=== PATIENT | male | born 1990 | race African-American/Black ===

== ENCOUNTER 2024-05-12 15:52 | Emergency (ER) | payer MEDICAID ==
[~2024-05-12] VITALS: Ht 177.8 cm; Wt 75.0 kg
[2024-05-12 16:05] VITALS: BP 113/72; PULSE 68; RESP 18; TEMP 98; O2SAT 100
[2024-05-12] MEDS ORDERED: MECLIZINE 25MG TABLET PO ONE (16:15)
[2024-05-12] MEDS ORDERED: MECLIZINE 25MG TABLET PO NR (16:15)
[2024-05-12 17:03] LABS: BASOPHILS % 0.9 % (0.0-2.0); EOSINOPHILS % 4.1 % (0.0-5.0); HEMATOCRIT. 42.2 % (42.0-52.0); HEMOGLOBIN. 13.5 g/dL (14.0-18.0); LYMPHOCYTES % 36.9 % (20.0-50.0); MEAN CORPUSCULAR VOLUME 87.5 fL (80.0-94.0); MEAN PLATELET VOLUME 7.4 fl (7.4-10.4); MONOCYTES % 6.1 % (2.0-8.0); PLATELET 238 x1000/uL (130-400); RED BLOOD CELL COUNT 4.83 mill/uL (4.7-6.1); RED CELL DISTRIBUTION WIDTH 13.7 % (11.6-14.6); WHITE BLOOD COUNT 5.1 x1000/uL (4.5-11.0)
[2024-05-12 17:07] LABS: CHLORIDE 108 mEq/L (98-107); SODIUM 140 mEq/L (136-145)
[2024-05-12 17:08] LABS: CARBON DIOXIDE 27 mEq/L (21-32)
[2024-05-12 17:13] LABS: CREATININE 1.1 mg/dL (0.6-1.3); GLUCOSE 84 mg/dL (70-105); UREA NITROGEN BLOOD 10 mg/dL (9-23)
[2024-05-12 17:35] LABS: TROPONIN I HIGH SENSITIVITY < 4 ng/L (3.0-53)
[2024-05-12] MEDS ORDERED: MECL-299 MT (18:08)
== END 2024-05-12 20:31 | disposition home or self-care (01) ==
LOC: ER 15:52
DX: R42 Dizziness and giddiness (principal); F12.10 Cannabis abuse, uncomplicated
CPT/HCPCS: 36415; 71045; 80048; 84484; 85025; 93005; 99285